=== PATIENT | female | born 1985 | race Caucasian/White ===

== ENCOUNTER 2017-03-21 08:14 | Emergency (ER) | payer BC, OTHER ==
[~2017-03-21] VITALS: Ht 165.1 cm; Wt 100.0 kg
[2017-03-21 08:18] VITALS: Ht 165.1 cm; Wt 100.0 kg
[2017-03-21] MEDS ORDERED: HYDROCODONE/APAP (10/325) TAB PO ONE (09:30)
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
--- NOTE | 2017-03-21 10:05 | RADRPT ---
PROCEDURE: XR Knee. CLINICAL INDICATION: Pain TECHNIQUE: AP, lateral and oblique view of the left knee were obtained. The images reviewed on a PACS workstation. COMPARISON: None. FINDINGS: Three views of the left knee demonstrate no displaced fracture. No gross malalignment is seen. The re is no significant degenerate change. No patellofemoral disease is identified. No knee joint effus ion is seen.. The bones normally mineralized. The soft tissues are unremarkable. IMPRESSION: No acute fracture dislocation RPTAT: HH .Balwinder Escobar MD, MD Date Time Electronically viewed and signed by .Balwinder Escobar MD, on 03/21/2017 10:05 .W/
[2017-03-21] MEDS ORDERED: IBUP-1542 PO (10:22)
[2017-03-21] MEDS ORDERED: HYDR-906 PO (10:22)
[2017-03-21 10:42] VITALS: PULSE 78; RESP 16
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
== END 2017-03-21 11:00 | disposition home or self-care (01) ==
LOC: FTE 08:14
DX: M25.562 Pain in left knee (principal); R07.89 Other chest pain
CPT/HCPCS: 71020; 73562